=== PATIENT | female | born 1980 | race Two or more races ===

== ENCOUNTER 2018-12-20 10:51 | Emergency (ER) | payer SELFPAY ==
[~2018-12-20] VITALS: Ht 160 cm; Wt 71.7 kg
[2018-12-20] MEDS ORDERED: NKM (10:59)
--- NOTE | 2018-12-20 11:06 | NUR ---
ED Nurse Note: a/ox4. ambulated in to ER from home due to fever, chill, bodyaches x 4days. Pt reports N/V, dizziness and nosebleed yesterday. Will continue to monitor.
[2018-12-20 11:09] VITALS: BP 95/58
[2018-12-20] MEDS ORDERED: Ketorolac 30mg Inj IM ONE (11:15)
--- NOTE | 2018-12-20 11:15 | NUR ---
ED Nurse Note: notified Dr. Ferrara regarding pt's fever of 101.8F oral temp. no new order received at this time.
--- NOTE | 2018-12-20 11:17 | NUR ---
ED Nurse Note: Influenza A&B sent down to the lab.
--- NOTE | 2018-12-20 11:23 | Emergency Room Report ---
History of Present Illness General Chief Complaint: Flu Like Symptoms Source: Patient Present Illness HPI 38yo female with no major medical problems other than prediabetes presents with 4 days history of cough rhinorrhea body aches headaches and fever, she's not taking medications for symptoms, she denies any vomiting but does report occasional nausea, denies focal chest pain or abdominal pain, urinary symptoms. Allergies: Coded Allergies: No Known Allergies (Unverified , 12/20/18) Patient History Past Medical History: see triage record Now: No Reviewed Nursing Documentation: PMH: Agreed; PSxH: Agreed Nursing Documentation-PMH Past Medical History: No Stated History Review of Systems All Other Systems: negative except mentioned in HPI Physical Exam Vital Signs Date Time Temp Pulse Resp B/P (MAP) Pulse Ox O2 Delivery O2 Flow Rate FiO2 12/20/18 10:55 101.8 97 17 95/58 99 Room Air Sp02 EP Interpretation: reviewed, normal General Appearance: no apparent distress, alert, non-toxic Head: normocephalic Eyes: bilateral eye normal inspection, bilateral eye PERRL, bilateral eye EOMI ENT: normal ENT inspection, hearing grossly normal, normal pharynx, no angioedema, normal voice, moist mucus membranes Neck: normal inspection, full range of motion, supple, supple/symm/no masses Respiratory: chest non-tender, lungs clear, normal breath sounds, no rhonchi, no respiratory distress, no retraction, no accessory muscle use, no wheezing, speaking full sentences, chest symmetrical, palpation of chest normal Cardiovascular #1: normal peripheral pulses, regular rate, rhythm, no edema, no gallop, no JVD, no murmur, no rub Cardiovascular #2: 2+ radial (R), 2+ radial (L), 2+ dorsalis pedis (R), 2+ dorsalis pedis (L) Gastrointestinal: normal inspection, non tender, soft, no mass, no guarding, no rebound Rectal: deferred Genitourinary: normal inspection, no CVA tenderness Musculoskeletal: back normal, gait/station normal, normal range of motion, non- tender, no calf tenderness Neurologic: alert, responsive, analyst III-XII nml as tested, motor strength/tone normal, sensory intact, speech normal Psychiatric: judgement/insight normal, memory normal, mood/affect normal Skin: normal color, no rash, warm/dry, normal turgor Lymphatic: no adenopathy Medical Decision Making Diagnostic Impression: Primary Impression: Influenza-like symptoms ER Course Patient with flulike symptoms, given Toradol and Tylenol, influenza A positive, will dc with tamiflu, motrin. Last Vital Signs Date Time Temp Pulse Resp B/P (MAP) Pulse Ox O2 Delivery O2 Flow Rate FiO2 12/20/18 11:09 101.8 97 17 95/58 99 Room Air Disposition: HOME, SELF-CARE Condition: Stable Referrals: NOT CHOSEN HARLAN/,REFERRING (PCP) CORBY SUERO M.D Dec 20, 2018 11:23
[2018-12-20] MEDS ORDERED: TAMIFLU75 MG ORAL (12:58)
[2018-12-20] MEDS ORDERED: IBUPROFEN600 MG ORAL (12:58)
[2018-12-20 13:06] VITALS: BP 11/60
--- NOTE | 2018-12-20 13:06 | NUR ---
ED Nurse Note: A/Ox4. Pt is cleared by Dr. Ferrara. DC instruction and prescription given, pt verbalized understanding. ID wrist band and IV removed. All belongings given to pt. Pt denies any pain at this time. Pt ambulated out of ER with steady gait.
== END 2018-12-20 13:06 | disposition home or self-care (01) ==
LOC: EMR 11:13
DX: J11.1 Influenza due to unidentified influenza virus with other respiratory manifestations (principal)
CPT/HCPCS: 86710; 96372; 99283; J1885